=== PATIENT | female | born 1950 | race Caucasian/White ===

== ENCOUNTER 2017-12-30 09:21 | Emergency (ER) | payer MEDICARE ==
[~2017-12-30] VITALS: Ht 167.6 cm; Wt 67.6 kg
--- NOTE | 2017-12-30 09:34 | PHYS DOC ---
Adult General Chief Complaint Chief Complaint: SHOULDER INJURY [facility] HPI Patient is a 67 year old female presented to ER today for evaluation of right shoulder pain that started yesterday. Pain was severe, hurt worse when she moves shoulder in any direction. Patient has history of chronic right shoulder pain, denies any recent injury. She denies any weakness or numbness or tingling sensation in her right upper extremity. Patient has been training for bicycle ride next week. Review of Systems Review of Systems Constitutional: Denies fever or chills [] Eyes: Denies change in visual acuity, redness, or eye pain [] HENT: Denies nasal congestion or sore throat [] Respiratory: Denies cough or shortness of breath [] Cardiovascular: No additional information not addressed in HPI [] GI: Denies abdominal pain, nausea, vomiting, bloody stools or diarrhea [] : Denies dysuria or hematuria [] Musculoskeletal: Positive for right shoulder pain. Integument: Denies rash or skin lesions [] Neurologic: Denies headache, focal weakness or sensory changes [] Endocrine: Denies polyuria or polydipsia [] All other systems were reviewed and found to be within normal limits, except as documented in this note. Allergies Allergies Allergies Coded Allergies Type Severity Reaction Last Updated Verified NSAIDS (Non-Steroidal Anti-Inflamma Allergy Mild "ULCERATIVE COLITIS" 12/30/17 Yes amoxicillin Adverse Reaction Mild "STOMACH DISTRESS" 12/30/17 Yes clavulanic acid Adverse Reaction Mild "STOMACH DISTRESS" 12/30/17 Yes Physical Exam Physical Exam Constitutional: Well developed, well nourished, no acute distress, non-toxic appearance. [] HENT: Normocephalic, atraumatic, Eyes: PERRLA, EOMI, conjunctiva normal, no discharge. [] Neck: Normal range of motion, no tenderness, supple, no stridor. [] Cardiovascular:Heart rate regular rhythm, no murmur [] Lungs & Thorax: Bilateral breath sounds clear to auscultation [] Abdomen: Bowel sounds normal, soft, no tenderness, no masses, no pulsatile masses. [] Skin: Warm, dry, no erythema, no rash. [] Back: No tenderness, no CVA tenderness. [] Extremities: Right shoulder is tender to palpation at AC joint, no deformity, no evidence of subluxation. No swelling. Neurologic: Alert and oriented X 3, normal motor function, normal sensory function, no focal deficits noted. [] Psychologic: Affect normal, judgement normal, mood normal. [] Current Patient Data Vital Signs Vital Signs Date Time Temp Pulse Resp B/P (MAP) Pulse Ox O2 Delivery O2 Flow Rate FiO2 12/30/17 11:34 79 16 124/72 (89) 98 Room Air 12/30/17 09:25 99.7 99.7 EKG EKG [] Radiology/Procedures Radiology/Procedures [][facility] [address] [place] [address] IMAGING REPORT Signed PATIENT: FRANCHESKA WEIR ACCOUNT: [id number] : 1950 LOCATION: ER AGE: 67 SEX: F EXAM STATUS: REG ER ORD. PHYSICIAN: LISE SANCHEZ DO REASON: RIGHT SHOULDER PAIN SINCE YESTERDAY PROCEDURE: SHOULDER 2+V RIGHT Right shoulder radiograph 12/30/2017 9:31 AM INDICATION: Right shoulder pain for years COMPARISON: None available. TECHNIQUE: 4 views of the right shoulder are provided. FINDINGS: There is no acute fracture or dislocation. Ossific bodies are identified in the inferior glenohumeral joint measuring 1.8 cm. There is advanced joint space narrowing of the glenohumeral joint with subcortical sclerosis and marginal osteophytosis. There is remodeling of the humeral head. Bone mineralization is within normal limits. Regional soft tissues are within normal limits. There is no soft tissue gas or osseous erosion. IMPRESSION: No acute fracture or dislocation. Advanced osteoarthrosis of the right glenohumeral joint. Bodies are noted in the inferior joint space. Consideration may be given for synovial chondromatosis. Electronically signed by: Jose A Gudino MD (12/30/2017 10:33 AM) [id number] DICTATED and SIGNED BY: JOSE A GUDINO MD DATE: 12/30/17 1032 Impressions: RIGHT SHOULDER OSTEOARTHRITIS Course & Med Decision Making Course & Med Decision Making Pertinent Labs and Imaging studies reviewed. (See chart for detail) Discharge home with medrodopak, pain medication, follow up with pcp for MRI of right shoulder, Sheyla Disclaimer Dragon Disclaimer This electronic medical record was generated, in whole or in part, using a voice recognition dictation system. Departure Departure Impression: Primary Impression: Osteoarthritis of right shoulder Disposition: HOME, SELF-CARE Condition: STABLE Referrals: BRYAN CULLEN MD Patient Instructions: Osteoarthritis, Shoulder Pain Scripts Hydrocodone/Apap 5-325 (NORCO 5-325 TABLET) 1 Each Tablet 1 TAB PO TID, #20 TAB Prov: LISE SANCHEZ DO 12/30/17 Methylprednisolone (MEDROL) 4 Mg Tab.ds.pk 1 PKG PO UD, #1 PKG Prov: LISE SANCHEZ DO 12/30/17 LISE SANCHEZ DO Dec 30, 2017 09:34
--- NOTE | 2017-12-30 10:37 | RAD ---
Right shoulder radiograph 12/30/2017 9:31 AM INDICATION: Right shoulder pain for years COMPARISON: None available. TECHNIQUE: 4 views of the right shoulder are provided. FINDINGS: There is no acute fracture or dislocation. Ossific bodies are identified in the inferior glenohumeral joint measuring 1.8 cm. There is advanced joint space narrowing of the glenohumeral joint with subcortical sclerosis and marginal osteophytosis. There is remodeling of the humeral head. Bone mineralization is within normal limits. Regional soft tissues are within normal limits. There is no soft tissue gas or osseous erosion. IMPRESSION: No acute fracture or dislocation. Advanced osteoarthrosis of the right glenohumeral joint. Bodies are noted in the inferior joint space. Consideration may be given for synovial chondromatosis. Electronically signed by: Quita Campos MD (12/30/2017 10:33 AM) [id number]
[2017-12-30] MEDS ORDERED: HYDR-971 PO (11:24)
[2017-12-30] MEDS ORDERED: METH4TAB2 PO (11:24)
[2017-12-30 11:34] VITALS: BP 124/72
== END 2017-12-30 11:36 | disposition home or self-care (01) ==
LOC: ER 09:21
DX: M19.011 Primary osteoarthritis, right shoulder (principal); G89.29 Other chronic pain; Z88.1 Allergy status to other antibiotic agents; Z88.6 Allergy status to analgesic agent; Z88.8 Allergy status to other drugs, medicaments and biological substances
CPT/HCPCS: 73030; 99284